=== PATIENT | male | born 1980 | race Caucasian/White ===

== ENCOUNTER 2017-05-22 12:13 | Emergency (ER) | payer MEDICAID, OTHER ==
[~2017-05-22] VITALS: Ht 185.4 cm; Wt 86.2 kg
[2017-05-22] MEDS ORDERED: SITA100T PO (12:38)
[2017-05-22] MEDS ORDERED: GABA-536 PO (12:38)
[2017-05-22] MEDS ORDERED: GEMF600T PO (12:38)
[2017-05-22] MEDS ORDERED: ATOR40TA29 PO (12:38)
[2017-05-22] MEDS ORDERED: CARV12.52 PO (12:38)
[2017-05-22] MEDS ORDERED: DICL75TA5 PO (12:38)
[2017-05-22] MEDS ORDERED: METF-495 PO (12:38)
[2017-05-22] MEDS ORDERED: HYDR-548 PO (12:38)
[2017-05-22] MEDS ORDERED: IBUP-1957 PO (12:38)
[2017-05-22] MEDS ORDERED: GLIP10TA11 PO (12:38)
[2017-05-22] MEDS ORDERED: OMEP20TA5 PO (12:38)
--- NOTE | 2017-05-22 12:48 | NUR ---
DR HARTLEY AT THE BEDSIDE FOR EVAL AND EXAM, TRANSLATE FOR PT PER PT REQUEST.
[2017-05-22 13:21] LABS: BASOPHILS % (AUTO) 0.6 % (0.0-2.0); EOSINOPHILS # (AUTO) 0.4 K/uL (0.0-0.7); EOSINOPHILS % (AUTO) 6.5 % (0.0-7.0); HEMATOCRIT 40.7 % (40-50); HEMOGLOBIN 13.5 G/DL (14.0-18.0); LYMPHOCYTES # (AUTO) 2.1 K/UL (0.8-4.8); LYMPHOCYTES % (AUTO) 31.7 % (20.5-51.5); MEAN CORPUSCULAR HEMOGLOBIN 27.1 UUG (27.0-31.0); MEAN CORPUSCULAR HGB CONC 33 g/dL (32.0-37.0); MEAN CORPUSCULAR VOLUME 81.7 FL (82.0-92.0); MONOCYTES # (AUTO) 0.5 K/UL (0.1-1.30); NEUTROPHILS # (AUTO) 3.7 K/UL (1.8-8.9); NEUTROPHILS % (AUTO) 54.2 % (38.5-71.5); PLATELET COUNT (AUTO) 313 K/UL (150-450); RED BLOOD CELL COUNT(AUTO) 4.98 MIL/UL (4.7-6.1); WHITE BLOOD COUNT (AUTO) 6.7 K/UL (4.0-11.2)
[2017-05-22 13:29] LABS: CREATININE 0.9 mg/dL (0.6-1.3); POTASSIUM 4.1 mmol/L (3.5-5.1)
[2017-05-22 13:34] LABS: BILIRUBIN,DIRECT 0.1 mg/dL (0.0-0.2); BILIRUBIN,TOTAL 0.3 mg/dL (0.2-1.0); TOTAL PROTEIN, SERUM 8.4 g/dL (6.4-8.2)
[2017-05-22 14:03] LABS: *BILIRUBIN,URIN NEGATIVE (NEGATIVE); *BLOOD, URINE NEGATIVE (NEGATIVE); *CLARITY,URINE CLEAR (CLEAR); *COLOR,URINE YELLOW (YELLOW); *KETONES,URINE TRACE (NEGATIVE); *PROTEIN,URINE TRACE (NEGATIVE); *UROBILINOGEN,URINE 0.2 E.U./dl (NORMAL); LEUKOCYTE ESTERASE ,URINE NEGATIVE (NEGATIVE); NITRITE, URINE NEGATIVE (NEGATIVE)
[2017-05-22 14:05] LABS: UGLUCOSE 2+ (NEGATIVE)
[2017-05-22 14:23] LABS: BACTERIA,URINE FEW /HPF (NONE SEEN); CALCIUM OXALATE CRYSTALS,UR FEW /HPF (NONE SEEN); RBC,URINE 0-3 /HPF (0-3); SQUAMOUS EPITHELIAL CELL,UR FEW /HPF (NONE SEEN); WBC,URINE 0-3 /HPF (0-3)
--- NOTE | 2017-05-22 14:30 | NUR ---
Patient discharged to home in stable conditon. Written and verbal after care instructions given. Patient verbalizes understanding of instructions. pt left er w/ steady gait accompained by family.
[2017-05-22 14:35] VITALS: BP 137/90
== END 2017-05-22 14:35 | disposition home or self-care (01) ==
LOC: ER 12:32
DX: J32.4 Chronic pansinusitis (principal); E11.9 Type 2 diabetes mellitus without complications; K21.9 Gastro-esophageal reflux disease without esophagitis; I10 Essential (primary) hypertension; E78.00 Pure hypercholesterolemia, unspecified
CPT/HCPCS: 36415; 70450; 85025; A4663

== ENCOUNTER 2017-09-27 11:46 | Emergency (ER) | payer OTHER ==
[~2017-09-27] VITALS: Ht 185.4 cm; Wt 88.0 kg
[~2017-09-27 11:46] MED LIST: ATOR40TA29 PO; CARV12.52 PO; DICL75TA5 PO; GABA-536 PO; GEMF600T PO; GLIP10TA11 PO; HYDR-548 PO; IBUP-1957 PO; METF-495 PO; OMEP20TA5 PO; SITA100T PO
--- NOTE | 2017-09-27 13:38 | NUR ---
Patient discharged to home in stable conditon. Written and verbal after care instructions given to patient and family. Patient verbalizes understanding of instructions. Patient left ER with brisk steady gait.
== END 2017-09-27 13:39 | disposition home or self-care (01) ==
LOC: ER 11:46
DX: S16.1XXA Strain of muscle, fascia and tendon at neck level, initial encounter (principal); E11.9 Type 2 diabetes mellitus without complications; K21.9 Gastro-esophageal reflux disease without esophagitis; I10 Essential (primary) hypertension; E78.00 Pure hypercholesterolemia, unspecified; V43.52XA Car driver injured in collision with other type car in traffic accident, initial encounter; Y92.410 Unspecified street and highway as the place of occurrence of the external cause; Y93.89 Activity, other specified; Y99.8 Other external cause status
CPT/HCPCS: 72040; 72100; 73020; 99284; A4663